=== PATIENT | female | born 1990 | race Caucasian/White ===

== ENCOUNTER 2017-09-04 10:51 | Emergency (ER) | payer MEDICAID ==
[~2017-09-04] VITALS: Ht 154.9 cm; Wt 56.4 kg
[2017-09-04 10:59] VITALS: BP 133/78
[2017-09-04 11:20] LABS: CLARITY,URINE CLOUDY (Clear); COLOR,URINE YELLOW (Yellow); GLUCOSE, URINE NEGATIVE (Neg); KETONES,URINE NEGATIVE (Neg); LEUKOCYTE ESTERASE ,URINE NEGATIVE (Neg); NITRITES, URINE NEGATIVE (Neg); OCCULT BLOOD,URINE NEGATIVE (Neg); PH,URINE 5.5 (4.8-8.0); PROTEIN,URINE NEGATIVE (Neg); URINE HCG NEGATIVE (NEG); UROBILINOGEN,URINE 0.2 E.U/dL (0.2-1.0)
[2017-09-04 11:21] LABS: BASOPHILS % (AUTO) 0.2 % (0-1); EOSINOPHILS # (AUTO) 0.2 X10'3 (0-0.9); EOSINOPHILS % (AUTO) 2.1 % (0-6); HEMATOCRIT 41.5 % (35.0-45.0); HEMOGLOBIN 14.3 g/dl (12.0-16.0); LYMPHOCYTES # (AUTO) 2.3 X10'3 (1.1-4.8); LYMPHOCYTES % (AUTO) 20.7 % (21-51); MEAN CORPUSCULAR HEMOGLOBIN 31.1 PG (27.0-31.0); MEAN CORPUSCULAR HGB CONC 34.5 % (33.0-36.5); MEAN PLATELET VOLUME 7.7 FL (7.4-10.4); MONOCYTES # (AUTO) 0.6 X10'3 (0-0.9); MONOCYTES % (AUTO) 5.7 % (2-12); NEUTROPHILS # (AUTO) 7.9 X10'3 (1.8-7.7); NEUTROPHILS % (AUTO) 71.3 % (42-75); PLATELET COUNT 348 X10'3 (140-440); RED BLOOD COUNT 4.61 X10'6 (4.20-5.60); RED CELL DISTRIBUTION WIDTH 13.5 % (11.5-14.5); WHITE BLOOD COUNT 11.1 X10'3 (4.5-11.0)
[2017-09-04 11:21] LABS: UA COLLECTION TYPE CLN CATCH MIDSTREAM
[2017-09-04 11:27] LABS: BACTERIA,URINE 1+ /HPF (Neg); MUCUS STRANDS MODERATE /LPF (Neg); RBC,URINE 0-2 /HPF (0-2); SQUAMOUS EPITHELIAL CELL,UR MODERATE /LPF (FEW); WBC,URINE 0-4 /HPF (0-4)
[2017-09-04 11:30] LABS: PROTHROMBIN TIME 10.2 SECONDS (9.0-12.0)
[2017-09-04] MEDS ORDERED: ondansetron 4mg rapidly disintigrating tab PO ONE (11:30)
[2017-09-04] MEDS ORDERED: HYDROcodone/acetaminophen 5mg/325mg tablet PO ONE (11:30)
[2017-09-04] MEDS ORDERED: ketorolac trometh inj. 60 MG/2 ML VIAL IM ONE (11:30)
[2017-09-04 11:36] LABS: ALANINE AMINOTRANSFERASE 16 U/L (12-78); ALBUMIN/GLOBULIN RATIO 1.1 (1.1-1.5); ALKALINE PHOSPHATASE 62 IU/L (46-116); ANION GAP 10 (8-16); ASPARTATE AMINO TRANSFERASE 6 U/L (10-37); BILIRUBIN,TOTAL 0.4 MG/DL (0.1-1.0); BLOOD UREA NITROGEN 12 MG/DL (7-18); BUN/CREATININE RATIO 16.2 (6.6-38.0); CALCIUM 8.9 MG/DL (8.5-10.1); CHLORIDE 104 MMOL/L (99-107); CREATININE 0.74 MG/DL (0.40-0.90); GLUCOSE 94 MG/DL (70-104); POTASSIUM 3.7 MMOL/L (3.5-5.1); SODIUM 141 MMOL/L (135-145); TOTAL CARBON DIOXIDE 26.7 MMOL/L (24-32); TOTAL PROTEIN 7.8 G/DL (6.4-8.2); eGFR > 90 ML/MIN
== END 2017-09-04 12:41 | disposition home or self-care (01) ==
LOC: ER 10:51
DX: R10.30 Lower abdominal pain, unspecified (principal); B34.9 Viral infection, unspecified; R30.0 Dysuria
CPT/HCPCS: 36415; 80053; 81001; 81025; 85025; 85610; 96372; 99284; J1885

== ENCOUNTER 2024-11-17 14:04 | Emergency (ER) | payer MEDICAID ==
[~2024-11-17] VITALS: Ht 154.9 cm; Wt 65.8 kg
[2024-11-17 14:26] VITALS: TEMP 96.4
--- NOTE | 2024-11-17 14:30 | Physician Documentation ---
History of Present Illness ~ Chief Complaint: Urinary Symptoms Stated Complaint: ABDOMINAL PAIN Time Seen by MD: 15:40 OK to notify your PCP?: Yes Primary Medical Doctor: [facility] Source: patient Mode of Arrival: POV Exam Limitations: no limitations HPI 34-year-old female presents with lower abdominal pain, dysuria and right flank pain. Denies nausea vomiting or diarrhea. No history of kidney stones. PATIENT ALSO REPORTS HAVING ON SOME VAGINAL DISCHARGE FOUL SMELLING Day of Onset: Nov 17, 2024 Medication Reconciliation Allergies: Coded Allergies: No Known Allergies (Unverified , 09/04/17) Past Medical History Past Medical History: UTI Past Surgical History: noncontributory Alcohol Use: None Drug Use: none Lives with: Family Lives In: Home Review of Systems All Other Systems at this time: Reviewed and Negative Physical Exam Vital Signs: RN Vital Signs have been reviewed: Yes, Temperature: 96.4, Source: Temporal, Heart Rate: 97, Respiratory Rate: 20, BP: 122/85, Pulse Oximetry: 97, Weight: 65.800 Pulse Oximetry Reflects: adequate oxygenation Physical Exam General: Alert, no distress. HEENT: No injection, moist mucous membranes. Neck: Full range of motion. Respiratory: No respiratory distress, equal chest rise and fall. Chest: No accessory muscle use. Cardiovascular: Regular rate and rhythm. Gastrointestinal: Nondistended. Extremities: Normal range of motion, no deformity. Back: Right CVA tenderness Neurologic: Oriented x4. Psychiatric: Normal mood and affect. Skin: Normal color, warm and dry. Progress Results/Orders Results/Orders Orders - LLOYD DUPONT [employer]ATE Chlam/Gc Amp Ur (11/17/24 16:02) Vital Signs 11/17/24 11/17/24 14:26 15:12 Temp 96.4 Pulse 97 76 Resp 20 15 B/P (MAP) 122/85 113/83 (93) Pulse Ox 97 98 Laboratory Tests Test 11/17/24 14:30 11/17/24 14:58 Urine Specimen Description Cln catch midstream Urine Color Yellow Urine Clarity Slightly cloudy Urine pH 5.5 Urine Specific [place] >=1.030 Urine Protein 30 H Urine Glucose (UA) Negative Urine Ketones Negative Urine Occult Blood Negative Urine Nitrite Negative Urine Bilirubin Negative Urine Urobilinogen 0.2 Urine Leukocyte Esterase Negative Urine RBC 3-10 Urine WBC 5-10 H Urine Squamous Epithelial Cells Few Urine Transitional Epithelial Cells Few Urine Bacteria Few Urine Hyaline Casts 0-3 Urine Culture Indicated Indicated Volume Urine Centrifuged 1 ml Urine HCG, Qualitative Negative Urine Comment Low volume White Blood Count 8.6 Red Blood Count 4.56 Hemoglobin 14.1 Hematocrit 41.3 Mean Corpuscular Volume 90.5 Mean Corpuscular Hemoglobin 30.9 Mean Corpuscular Hemoglobin Concent 34.1 Red Cell Distribution Width 13.3 Platelet Count 355 Mean Platelet Volume 7.7 Neutrophils (%) (Auto) 65.3 Lymphocytes (%) (Auto) 21.4 Monocytes (%) (Auto) 9.5 Eosinophils (%) (Auto) 3.1 Basophils (%) (Auto) 0.7 Neutrophils # (Auto) 5.6 Lymphocytes # (Auto) 1.8 Monocytes # (Auto) 0.8 Eosinophils # (Auto) 0.3 Basophils # (Auto) 0.1 CBC Comment Sodium Level 138 Potassium Level 3.4 L Chloride Level 103 Carbon Dioxide Level 21.2 L Anion Gap 14 Blood Urea Nitrogen 13 Creatinine 0.82 Estimated GFR/1.73 m2 79 BUN/Creatinine Ratio 15.9 Glucose Level 116 H Calcium Level 8.8 Total Bilirubin 0.3 Aspartate Amino Transf (AST/SGOT) 11 Alanine Aminotransferase (ALT/SGPT) 20 Alkaline Phosphatase 68 Total Protein 7.1 Albumin 3.9 Globulin 3.2 Albumin/Globulin Ratio 1.2 Lipase 21 Chemistry Comments Medical Decision Making Findings UPON FURTHER EVALUATION I TALKED WITH THE PATIENT'S SOME MORE AND SHE INDICATED THAT THE VAGINAL DISCHARGE DID NOT HAVE ANY DISCOLORATION. BUT SHE HAS NOT HAD ANY VAGINAL ITCHING. AND SHE HAS ALSO NOT BEEN SEXUALLY ACTIVE FOR SEVERAL MONTHS. NO SIGNS OF PYELONEPHRITIS I CAN NOT COMPLETELY RULE OUT SEXUALLY TRACT TRANSMITTED DISEASE WITHOUT ON URINALYSIS. HOWEVER ,NOT SUSPICIOUS ENOUGH TO TREAT HER EMPIRICALLY. AT THIS TIME AND A DISCHARGE HER ON SULFA ANTIBIOTICS Urinary Diff Dx:Considerations: Include: AAA, , Aortic dissection, Appendicitis, Bowel obstruction, Cholelithiasis, Choleangitis, DJD, Ectopic , Hepatitis, HNP, Impaction, Intrauterine , Musculoskeletal pain, Ovarian torsion, Pancreatitis, PID, Post-Op complication, Pyelonephritis, Renal failure, Strain, Urinary Obstruction, Urolithiasis, Urinary retention, UTI, Vaginitis, Other Departure Disposition: 01 HOME / SELF CARE / HOMELESS Impression: Primary Impression: Acute urinary tract infection Discharge Instructions: Urinary Tract Infection, Adult Referrals: NO PRIMARY CARE PROVIDER (PCP) Prescriptions Sulfamethoxazole/Trimethoprim SS Tab* (Bactrim SS Tablet*) 400 Mg-80 Mg Tablet 1 TAB PO Q12H for 10 Days, #20 TAB Prov: LLOYD DUPONT NP 11/17/24 Additional Comment Medical Screen Exam This patient recieved a medical screening examination. After reviewing the individual's medical complaints with presenting symptoms and performing an appropriate physical examination, it was determined that no immediate life- threatening emergency medical condition is present. This individual is also not a women having contractions. Signature Scribe Signature: F Attestation: Scribed for Lloyd Dupont Reference Librarian by Lloyd Roth NP . 11/17/24 16:05 [facility] Nov 17, 2024 14:30 LLOYD DUPONT NP Nov 17, 2024 16:06
[2024-11-17 14:58] LABS: BILIRUBIN,URINE NEGATIVE (Neg); CLARITY,URINE SLIGHTLY CLOUDY (Clear); COLOR,URINE YELLOW (Yellow); GLUCOSE, URINE NEGATIVE (Neg); KETONES,URINE NEGATIVE (Neg); LEUKOCYTE ESTERASE ,URINE NEGATIVE (Neg); NITRITES, URINE NEGATIVE (Neg); OCCULT BLOOD,URINE NEGATIVE (Neg); PH,URINE 5.5 (4.8-8.0); PROTEIN,URINE 30 mg/dl (Neg); UROBILINOGEN,URINE 0.2 E.U/dL (0.2-1.0)
[2024-11-17 14:59] LABS: URINE HCG NEGATIVE (NEG)
[2024-11-17 15:00] LABS: UA COLLECTION TYPE CLN CATCH MIDSTREAM
[2024-11-17 15:07] LABS: BASOPHILS # (AUTO) 0.1 X10'3 (0-0.2); BASOPHILS % (AUTO) 0.7 % (0-1); EOSINOPHILS # (AUTO) 0.3 X10'3 (0-0.9); EOSINOPHILS % (AUTO) 3.1 % (0-6); HEMATOCRIT 41.3 % (35.0-45.0); HEMOGLOBIN 14.1 g/dl (12.0-16.0); LYMPHOCYTES # (AUTO) 1.8 X10'3 (1.1-4.8); LYMPHOCYTES % (AUTO) 21.4 % (21-51); MEAN CORPUSCULAR HEMOGLOBIN 30.9 PG (27.0-31.0); MEAN CORPUSCULAR HGB CONC 34.1 g/dL (33.0-36.5); MEAN CORPUSCULAR VOLUME 90.5 FL (78-98); MEAN PLATELET VOLUME 7.7 FL (7.4-10.4); MONOCYTES # (AUTO) 0.8 X10'3 (0-0.9); MONOCYTES % (AUTO) 9.5 % (2-12); NEUTROPHILS # (AUTO) 5.6 X10'3 (1.8-7.7); NEUTROPHILS % (AUTO) 65.3 % (42-75); PLATELET COUNT 355 X10'3 (140-440); RED BLOOD COUNT 4.56 X10'6 (4.20-5.60); RED CELL DISTRIBUTION WIDTH 13.3 % (11.5-14.5); WHITE BLOOD COUNT 8.6 X10'3 (4.5-11.0)
[2024-11-17 15:38] LABS: ALANINE AMINOTRANSFERASE 20 U/L (12-78); ALBUMIN 3.9 G/DL (3.4-5.0); ALBUMIN/GLOBULIN RATIO 1.2 (1.1-1.5); ALKALINE PHOSPHATASE 68 IU/L (46-116); ANION GAP 14 (8-16); ASPARTATE AMINO TRANSFERASE 11 U/L (10-37); BILIRUBIN,TOTAL 0.3 MG/DL (0.1-1.0); BLOOD UREA NITROGEN 13 MG/DL (7-18); BUN/CREATININE RATIO 15.9 (10.0-20.0); CALCIUM 8.8 MG/DL (8.5-10.1); CHLORIDE 103 MMOL/L (99-107); CREATININE 0.82 MG/DL (0.40-0.90); GLUCOSE 116 MG/DL (70-104); LIPASE 21 U/L (16-77); POTASSIUM 3.4 MMOL/L (3.5-5.1); SODIUM 138 MMOL/L (135-145); TOTAL CARBON DIOXIDE 21.2 MMOL/L (24-32); TOTAL PROTEIN 7.1 G/DL (6.4-8.2); eCRCL 72 ML/MIN; eGFR 79 ML/MIN
[2024-11-17 15:43] LABS: BACTERIA,URINE FEW /HPF (Neg); SQUAMOUS EPITHELIAL CELL,UR FEW /LPF (FEW); TRANSITIONAL EPI CELLS,URINE FEW /HPF
[2024-11-17 15:44] LABS: HYALINE CASTS 0-3 /LPF (NEGATIVE)
[2024-11-17] MEDS ORDERED: SULF-14 PO (16:17)
[2024-11-17] MEDS: sulfamethoxazole/trimethoprim DS (800/160mg) tablet PO ONE (16:23)
[2024-11-17 16:26] VITALS: BP 124/80; PULSE 81; O2SAT 98
[2024-11-17 16:29] VITALS: RESP 15
== END 2024-11-17 16:32 | disposition home or self-care (01) ==
LOC: ER 14:05
DX: N39.0 Urinary tract infection, site not specified (principal)
CPT/HCPCS: 36415; 80053; 81001; 81025; 83690; 85025; 87088; 99283